=== PATIENT | female | born 1985 | race Caucasian/White ===

== ENCOUNTER 2020-07-24 12:22 | Inpatient (IN) | payer MEDICAID, SELFPAY ==
[2020-07-24 12:28] VITALS: BP 117/85; PULSE 90; RESP 20; TEMP 37.1; O2SAT 95
[2020-07-24 14:00] VITALS: RESP 16
[2020-07-24 21:28] VITALS: BP 138/83; PULSE 79; RESP 18; TEMP 36.6; O2SAT 97
[2020-07-25 06:00] VITALS: BP 105/65; PULSE 69; RESP 16; TEMP 36.6; O2SAT 92
--- NOTE | 2020-07-25 09:29 | PM.NHP ---
Providers/Chief Complaint Admitting Physician: Primo Palacios DO Chief Complaint: acute psychosis and SI HPI NPU History of Present Illness Romina Owusu is a 34 year old female presented to an [facility] emergency department stating that she was having worsening depressive symptoms and having a nervous breakdown and had told police at the time that they had picked her up that she wanted them to shoot her. Patient is a poor historian with reportedly a longstanding history of polysubstance abuse, particularly methamphetamine abuse, presenting to an [facility] emergency department frequently for methamphetamine induced psychosis and mood symptoms. She continues to report intermittent depressive symptoms related to her living and life circumstances but denies any current suicidal ideation or thoughts about self-harm. Patient is poorly motivated with regards to providing details and does not provide much information only stating that she had previously been hospitalized but does not remember when and vaguely recalls being on psychotropic medication. She does report interest in starting a low-dose antidepressant targeting her depressive symptoms. Patient states that she does not recall the last time she used any substances, states that she does not remember the last time she used methamphetamine and her UDS had been reportedly negative at [facility] emergency department for methamphetamine. She denies any current auditory or visual hallucinations and denies any delusions. Psychiatric review of systems is otherwise negative. Patient reports unstable living arrangement stating that she has been working intermittently at fast food places but mostly living for short periods with different acquaintances. Patient reports feeling exhausted but otherwise unremarkable review of systems, states that her sleep and appetite have been good. Patient states that she would like to get her life straight after leaving this hospitalization but states that she is not interested in substance counseling/treatment. Review of Systems General: Reports: 10 or more systems reviewed and unremarkable except in HPI and below [facility] NPU Other Psychiatric History: Other Psychiatric History: Per HPI, patient poorly motivated to provide information, does not recall last psychiatric hospitalization, states that she does not recall past psychiatric treatment or treatment with medication. Does not provide response with regards to past suicide attempts or self-harm behavior. Mental Status Exam MSE Comments: Obese, white female, lying in bed, disheveled, tired appearing, covers pull-up Psychomotor activity is somewhat decreased, no agitation Speech is somewhat slow, normal volume, spontaneous, fair articulation, not pressured I feel exhausted, congruent affect, not labile Soporific, oriented to person, place, time, situation Memory and concentration are fair although difficult to assess given poor motivation for interview Intellectual functioning appears to be average at best based on vocabulary, interview Thought process, linear but brief, no flight of ideas, no looseness of associations Thought content, no stated delusions, does not appear to be attending to any internal stimuli, no suicidal homicidal ideation Insight and judgment appear to be fair Vitals/I&O/Wt Last Vital Signs Temp 97.9 F 07/25/20 06:00 Pulse 69 07/25/20 06:00 Resp 16 07/25/20 06:00 BP 105/65 07/25/20 06:00 Pulse Ox 92 07/25/20 06:00 Weight last 48 hrs Weight 111.13 kg A&P Assessment and plan (1) Suicidal ideation: Status: Acute (2) Depressive disorder: Status: Acute (3) Polysubstance abuse: Status: Acute Additional A&P Information Presented from [facility] emergency department reporting worsening depressive symptoms and having a nervous breakdown, patient known to [facility] emergency department with frequent episodes of presenting with substance-induced mood and psychotic symptoms. Patient continues to report depressive symptoms in the context of negative UDS at the time of her presentation at [facility] emergency department. Unclear if patient's ongoing mood symptoms represent underlying mood disorder versus substance-induced mood disorder. Patient would benefit from initiating low-dose antidepressant. Patient has no interest in pursuing follow on substance counseling/treatment but communicates her understanding of need to follow-up with mental health medication management and counseling. Currently denying any suicidal ideation. INVOLUNTARY ADMIT to inpatient psychiatry START citalopram 10 mg daily targeting depressive symptoms Patient encouraged to participate in unit activities, unit milieu Coordinate with rn social services for post discharge mental health follow-up Involuntary Hold Information 96 Hour Hold: 96 Hour Involuntary Admission: Yes Attestations NPU Medical Necessity Statement*: Psychiatric hospitalization indicated for medication stabilization, coordination for safe discharge Anticipate hospital stay to exceed 2 midnights Time Spent in Patient Care: Greater than 35 minutes (>than 50% of time spent in counselling and/or direct pt care on unit). Coding Level of Care Code Acute [employer] for Nat Fwd Diagnoses Suicidal ideation R45.851 Depressive disorder F32.9 Polysubstance abuse F19.10
[2020-07-25] MEDS: citalopram 20 mg Tablet 10 MG PO (10:11)
[2020-07-25 14:00] VITALS: BP 102/70; PULSE 72; RESP 16; TEMP 36.3; O2SAT 98
[2020-07-25 20:25] VITALS: BP 128/75; PULSE 79; RESP 18; TEMP 36.8; O2SAT 92
[2020-07-26 06:00] VITALS: BP 128/79; PULSE 61; RESP 20; TEMP 36.4; O2SAT 93
[2020-07-26] MEDS: escitalopram 10 mg Tablet 20 MG PO (08:22)
[2020-07-26] MEDS: citalopram 20 mg Tablet 10 MG PO (08:22)
--- NOTE | 2020-07-26 09:16 | P.DS_ITS ---
Diagnoses at Discharge Discharge Diagnosis (1) Suicidal ideation: Status: Acute (2) Depressive disorder: Status: Acute (3) Polysubstance abuse: Status: Acute Reason for Visit Reason for Visit: acute psychosis and SI Hospital Course Hospital Course 34-year-old female with longstanding history of polysubstance abuse with unclear past psychiatric history but treated with Lexapro 20 mg daily and olanzapine 5 mg at bedtime presented to an [facility] emergency department with complaint of nervous breakdown. Patient's UDS was negative at the time of her presentation to [facility] emergency department; patient had quickly reconstituted and was denying any psychiatric symptoms at the time of initial evaluation and was requesting to go home. Patient was denying any suicidal ideation or thoughts about self-harm and was denying any psychotic symptoms. Patient was somewhat evasive with regards to questions about psychiatric history and follow-up but reported that she was taking medication inconsistently and appears to haphazardly follow-up with outpatient medication management. Patient does state that she has no interest in continuing on her current course but denied assistance with placement in outpatient or residential substance treatment post discharge. Patient was not suicidal at the time of discharge and did not appear to pose an imminent threat of harm to self or others. Low to moderate risk of harm to self given no current suicidal ideation and no current endorsement of any psychotic or other psychiatric symptoms although patient's risk will continue to be elevated if she continues to abuse substances and is noncompliant with recommendation to abstain from the use of substances as well as need for post discharge substance counseling/treatment which may lead to unexpected, impulsive behavior. Risk mitigation included psychiatric hospitalization for medication stabilization, observation, recommendation to abstain from the use of substances and alcohol as well as need for compliance with medication, medication management and post discharge substance c ounseling/treatment. Patient communicated her understanding of the need to abstain from the use of substances and alcohol as well as the need for compliance with her medication, medication management and post discharge substance counseling/treatment in order to further mitigate her risk of harm to self and others. Involuntary Hold Information 96 Hour Hold: 96 Hour Involuntary Admission: Yes Mental Status Exam MSE Comments: Lying in bed wearing hospital scrubs, calm, cooperative, unkempt, good eye contact Psychomotor activity is neither increased nor decreased, no agitation Speech is normal rate, normal volume, spontaneous, fair articulation, not pressured I feel exhausted, congruent affect, not labile Alert, oriented to person, place, time, situation Memory and concentration appear to be intact per interview Thought process, linear but brief, no flight of ideas, no looseness of associations Thought content, no stated delusions, does not appear to be attending to any internal stimuli, no suicidal homicidal ideation Insight and judgment appear to be fair Discharge Data Vitals: Last Vital Signs Temp 97.5 F L 07/26/20 06:00 Pulse 61 07/26/20 06:00 Resp 20 H 07/26/20 06:00 BP 128/79 07/26/20 06:00 Pulse Ox 93 07/26/20 06:00 Discharge Plan Discharge Patient Disposition: Home Condition: Stable Prescriptions: Continued escitalopram oxalate 20 mg tablet 20 mg PO DAILY RF: 0 Zyprexa 5 mg tablet 5 mg PO BEDTIME RF: 0 Naprosyn 500 mg tablet 500 mg PO BID MDD 2 PRN (Reason: Back Pain) RF: 0 Discharge Orders: Discharge Order (Routine); Ordered 07/26/20 Ordered By: Primo Palacios Discharge Diet: Usual diet Discharge Activity: Resume usual activity Patient Instructions: Naproxen (By mouth), Olanzapine (By mouth), Escitalopram (By mouth), Anxiety (DC), Opioid Safety Discharge Attestations NPU Time Spent in Discharge Care*: greater than 30 min Status at Discharge: Cognitive status at discharge: cognitively intact , Behavioral status at discharge: cooperative , Functional status at discharge: independent ambulation Overall status at discharge: patient is back to baseline Coding Level of Care Code Acute Chg FW DC note Diagnoses Suicidal ideation R45.851 Depressive disorder F32.9 Polysubstance abuse F19.10
[2020-07-26 09:17] VITALS: BP 128/79; PULSE 61; RESP 20; TEMP 36.4; O2SAT 93
--- NOTE | 2020-07-26 15:30 | PC.NURSE ---
Shift Summary Patient has been calm, cooperative, and more interactive today. Set up for discharge as soon as Medicaid ride is here to pick her up. Patient now in room.
== END 2020-07-26 17:00 | disposition home or self-care (01) | DRG 881 ==
PROVIDERS: Admitting Provider Psychiatry & Neurology Psychiatry; Visit Provider Psychiatry & Neurology Psychiatry
DX: F32.9 Major depressive disorder, single episode, unspecified (principal); R45.851 Suicidal ideations; F19.10 Other psychoactive substance abuse, uncomplicated

== ENCOUNTER 2020-11-15 18:07 | Inpatient (IN) | payer MEDICAID, SELFPAY ==
[2020-11-15 17:43] VITALS: BP 123/67; PULSE 68; RESP 18; TEMP 36.5; O2SAT 96
[2020-11-15 21:57] VITALS: BP 108/65; PULSE 64; RESP 14; TEMP 37.1; O2SAT 96
[2020-11-15] MEDS: hyDROXYzine 25 mg Capsule 50 MG PO (22:04)
[2020-11-15] MEDS: trazodone 50 mg Tablet PO (22:05)
[2020-11-16 06:00] VITALS: BP 92/53; PULSE 65; RESP 18; TEMP 36.8; O2SAT 98
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
--- NOTE | 2020-11-16 12:26 | NPU.GN ---
[facility] Group Topic:thought Processing General Mood of Group: patient did not come to group today.
[2020-11-16] MEDS: hyDROXYzine 25 mg Capsule 50 MG PO ×2 (13:09→21:21)
--- NOTE | 2020-11-16 13:10 | PC.NURSE ---
PRN VISTARIL 50 MG GIVEN PO PER PT C/O STATED ANXIETY
[2020-11-16 14:00] VITALS: BP 92/53; PULSE 65; RESP 18; TEMP 36.8; O2SAT 98
[2020-11-16] MEDS: haloperidol inj 5 mg/mL INJ 1 mL IM (14:43)
[2020-11-16] MEDS: LORazepam 2 mg/mL INJ 1 mL IM (14:44)
--- NOTE | 2020-11-16 14:45 | PC.NURSE ---
PRN ATIVAN/HALDOL ATIVAN 2 MG GIVEN IM WITH HALDOL 5 MG IM IN RIGHT DELTOID PER PT C/O AGITATION/AGGRESSION/ANXIETY. PT YELLING LOUDLY FROM HER ROOM, HITTING THE BED/LY WITH CLOSED FIST. STAFF ASKED PT IF SHE WAS IN PAIN PT YELLED YES IM IN FUCKING PAIN! OTHER STAFF MEMBERS PRESENT, PT CONT TO YELL PROFANITIES & BE DISRUPTIVE IN HER ROOM. OFFERED INJECTION, PT AGREEABLE TO TAKE INJECTION. WILL CONT TO MONITOR.
[2020-11-16] MEDS: OLANZapine 5 mg ODT PO (18:35)
[2020-11-16 20:50] VITALS: BP 96/58; PULSE 70; RESP 21; TEMP 37.1; O2SAT 95
[2020-11-16] MEDS: OLANZapine 5 mg TABLET PO (21:21)
[2020-11-16] MEDS: trazodone 50 mg Tablet PO (21:21)
[2020-11-17 06:00] VITALS: BP 120/69; PULSE 72; RESP 20; TEMP 36.9; O2SAT 98
[2020-11-17] MEDS: apixaban 5 mg Tablet PO (07:56)
[2020-11-17] MEDS: hyDROXYzine 25 mg Capsule 50 MG PO ×2 (13:19→20:09)
[2020-11-17 14:00] VITALS: BP 126/80; PULSE 86; RESP 20; TEMP 36.9; O2SAT 95
--- NOTE | 2020-11-17 16:28 | PM.NPN ---
Subjective NPU Subjective: Interval history: I met with the treatment team to discuss the patient's progress. They say she has continued to have severe anxiety which causes her to yell loudly at times. The patient says she has been having auditory hallucinations. She has been feeling intensely anxious at times. We talked about where she has been staying, place called [facility]. She denies having suicidal ideation. She does not feel her medications are helpful. She has asked for injections at times. We discussed that we will use injections only if necessary. I encouraged her to take the Zyprexa Zydis which is scheduled as needed for anxiety. She has been taking this medication and it has been helpful for her. She has some idea that the injections are more helpful. We agreed to increase the scheduled dose of Zyprexa at bedtime. Mental Status Exam MSE Comments: I met with the patient in her room, and she was dressed wrapped in a hospital blanket. She was again laying in bed and only somewhat responsive to my questions. Eye contact was poor. She had had a as needed Zyprexa a little while earlier. Mostly sleepy. Speech is slow at a quiet volume. Alert, oriented to person and situation, at least. Attention and concentration were somewhat impaired by her sedation. Memory is adequate for the interview Mood is anxious. Affect is improved. Thought process is concrete and still fairly disorganized. Thought content: She reports having auditory hallucinations. No visual hallucinations, no suicidal ideation or homicidal ideation. No delusions or paranoia are noted. Insight and judgment are impaired. Impulse control is impaired as well. Vitals/I&O/Wt Last Vital Signs Temp 97.6 F 11/17/20 20:39 Pulse 73 11/17/20 20:39 Resp 18 11/17/20 20:39 BP 97/55 11/17/20 20:39 Pulse Ox 96 11/17/20 20:39 Weight last 48 hrs Weight 106.594 kg A&P Assessment and plan (1) Bipolar disorder, curr episode mixed, severe, with psychotic features: Status: Acute (2) Anxiety disorder, unspecified: Status: Acute (3) Polysubstance abuse: Status: Acute Additional A&P Information This is a 35-year-old white female who has been in multiple emergency rooms who presents with severe mood lability and anxiety that has been preventing her from functioning. RECOMMENDATION AND PLAN: 1. She is taking Zyprexa for her psychosis and mood instability, related to bipolar disorder with psychotic features. We will increase the dose to 10 mg at bedtime. 2. Continue every 15 minute checks for safety. 3. Encourage individual, group and milieu therapies. 4. Encourage sober living treatment after discharge at the highest level of care to which he is willing to commit. Involuntary Hold Information 96 Hour Hold: 96 Hour Involuntary Admission: No Attestations NPU Medical Necessity Statement*: Psychiatric hospitalization is medically necessary to prevent access to lethal means, to reevaluate medication, and to coordinate a safe discharge. Likely length of stay is 2 to 4 days. Coding Level of Care Code Acute Superintendent [employer] for [facility] [employer] Diagnoses Bipolar disorder, curr episode mixed, severe, with psychotic features F31.64 Anxiety disorder, unspecified F41.9 Polysubstance abuse F19.10
[2020-11-17] MEDS: OLANZapine 5 mg ODT PO ×2 (17:25→22:54)
[2020-11-17] MEDS: trazodone 50 mg Tablet PO (20:08)
[2020-11-17] MEDS: OLANZapine 10 mg TABLET PO (20:09)
--- NOTE | 2020-11-17 20:10 | PC.NURSE ---
pt requesting sleep and anxiety meds, trazodone 50mg po for sleep and vistaril 50mg po given.
[2020-11-17 20:39] VITALS: BP 97/55; PULSE 73; RESP 18; TEMP 36.4; O2SAT 96
--- NOTE | 2020-11-17 22:15 | PC.NURSE ---
pt states still unable to sleep. requested pain med for left arm pain, Tylenol 650mg given.
[2020-11-17] MEDS: acetaminophen 325 mg Tablet 650 MG PO (22:17)
--- NOTE | 2020-11-17 23:00 | PC.NURSE ---
pt resting quietly with both eyes closed.
[2020-11-18 06:00] VITALS: BP 97/55; PULSE 73; RESP 18; TEMP 36.4; O2SAT 96
[2020-11-18] MEDS: apixaban 5 mg Tablet PO (09:10)
[2020-11-18 14:00] VITALS: BP 96/61; PULSE 76; RESP 20; TEMP 37; O2SAT 94
[2020-11-18] MEDS: OLANZapine 5 mg ODT PO (17:30)
--- NOTE | 2020-11-18 17:31 | PC.NURSE ---
PATIENT REQUESTING ZXPREXA, REPORTS SHE FEEL ANXIOUS. ZYPREXA 5MG ADMINISTERED. WILL MONITOR FOR DRUG EFFECTIVENESS
--- NOTE | 2020-11-18 18:11 | PC.NURSE ---
PATIENT RESTING QUIETLY WITH EYES CLOSED. PRN EFFECTIVE. WILL MONITOR FOR DRUG EFFECTIVENESS
--- NOTE | 2020-11-18 19:11 | PM.NPN ---
Subjective NPU Subjective: Interval history: I met with the treatment team to discuss the patient's progress. The plan is for her to go to [address] [place] to help find a place for her to stay. She will be seen in follow-up through the [facility]. She has been incontinent of urine at times. The patient says that she has been sad off and on, and she is tearful when I speak with her. She said she tossed and turned last night and was unable to sleep well. She has had some auditory and visual hallucinations today. Some feeling that she would like to be . We discussed medications. She has been on Zoloft in the past and it has been helpful for her. She consents to a trial. Mental Status Exam MSE Comments: I met with the patient on the bench by the nurses station, and she was dressed somewhat neatly in green hospital scrubs. She was interactive and responsive to my questions. Eye contact was improved. No psychomotor agitation or retardation. Speech is at a more regular rate and rhythm and normal volume. Alert, oriented to person and situation, at least. Attention and concentration were fairly intact. Memory is adequate for the interview Mood is sad and anxious. Affect is tearful at times. Thought process is concrete and more organized. Thought content: She reports having auditory and visual hallucinations. Some passive suicidal ideation but no homicidal ideation. No delusions or paranoia are noted. Insight and judgment are impaired. Impulse control is impaired as well. Vitals/I&O/Wt Last Vital Signs Temp 98.6 F 11/18/20 14:00 Pulse 76 11/18/20 14:00 Resp 20 H 11/18/20 14:00 BP 96/61 11/18/20 14:00 Pulse Ox 94 11/18/20 14:00 Weight last 48 hrs Weight 106.594 kg A&P Assessment and plan (1) Bipolar disorder, curr episode mixed, severe, with psychotic features: Status: Acute (2) Anxiety disorder, unspecified: Status: Acute (3) Polysubstance abuse: Status: Acute Additional A&P Information This is a 35-year-old white female who has been in multiple emergency rooms who presents with severe mood lability and anxiety that has been preventing her from functioning. RECOMMENDATION AND PLAN: 1. Add Zoloft 50 mg daily for depression. Continue Zyprexa 10 mg nightly for her psychosis and mood instability, related to bipolar disorder with psychotic features. 2. Continue every 15 minute checks for safety. 3. Encourage individual, group and milieu therapies. 4. Encourage sober living treatment after discharge at the highest level of care to which he is willing to commit. Involuntary Hold Information 96 Hour Hold: 96 Hour Involuntary Admission: No Attestations NPU Medical Necessity Statement*: Psychiatric hospitalization is medically necessary to prevent access to lethal means, to reevaluate medication, and to coordinate a safe discharge. Likely length of stay is 2 to 4 days. Coding Level of Care Code Acute Mobile Manager for [facility] Fwd Diagnoses Bipolar disorder, curr episode mixed, severe, with psychotic features F31.64 Anxiety disorder, unspecified F41.9 Polysubstance abuse F19.10
[2020-11-18] MEDS: sertraline 50 mg Tablet PO (21:59)
[2020-11-18] MEDS: OLANZapine 10 mg TABLET PO (21:59)
[2020-11-18 22:00] VITALS: BP 121/83; PULSE 88; RESP 20; TEMP 36.5; O2SAT 98
[2020-11-19 06:00] VITALS: BP 103/67; PULSE 67; RESP 15; TEMP 36.9; O2SAT 99
[2020-11-19] MEDS: sertraline 50 mg Tablet PO ×2 (09:34)
[2020-11-19] MEDS: apixaban 5 mg Tablet PO (09:34)
[2020-11-19 14:00] VITALS: BP 119/67; PULSE 73; RESP 16; TEMP 36.9; O2SAT 97
--- NOTE | 2020-11-19 17:40 | PM.NPN ---
Subjective NPU Subjective: Interval history: I met with the treatment team to review the patient's progress. We reviewed recent medication changes. The patient says that her depression is 7/10 in severity today, and her anxiety is 6/10?7/10. She says she slept okay, but she has been feeling somewhat hopeless and worthless today. She had suicidal ideation earlier in the morning. She denies homicidal ideation, as well as auditory and visual hallucinations. She has no side effects on the medications. She says she is feeling somewhat stable, and we had a good conversation about how to help her increase her emotional stability. She wants to get a job working at [employer] again. She can recognize that she is ambivalent about this, and states that part of her does not want to work as well. She has applied for disability and is waiting to hear back. Mental Status Exam MSE Comments: I met with the patient on the bench by the nurses station, and she was dressed somewhat neatly in green hospital scrubs. Grooming has improved a little each day. She was interactive and responsive to my questions. Eye contact was fairly good. No psychomotor agitation or retardation. Speech is at a more regular rate and rhythm and normal volume. Alert, oriented to person and situation, at least. Attention and concentration were fairly intact. Memory is adequate for the interview Mood is sad and anxious. Affect is mostly pleasant and she even smiles a couple of times. Thought process is concrete and more organized. Thought content: She reports no auditory and visual hallucinations. Some passive suicidal ideation but no homicidal ideation. No delusions or paranoia are noted. Insight and judgment are a little improved. Impulse control is a little improved as well. Vitals/I&O/Wt Last Vital Signs Temp 98.4 F 11/19/20 14:00 Pulse 73 11/19/20 14:00 Resp 16 11/19/20 14:00 BP 119/67 11/19/20 14:00 Pulse Ox 97 11/19/20 14:00 Weight last 48 hrs Weight 106.594 kg A&P Assessment and plan (1) Bipolar disorder, curr episode mixed, severe, with psychotic features: Status: Acute (2) Anxiety disorder, unspecified: Status: Acute (3) Polysubstance abuse: Status: Acute Additional A&P Information This is a 35-year-old white female who has been in multiple emergency rooms who presents with severe mood lability and anxiety that has been preventing her from functioning. RECOMMENDATION AND PLAN: 1. Added Zoloft 50 mg daily for depression. Continue Zyprexa 10 mg nightly for her psychosis and mood instability, related to bipolar disorder with psychotic features. No side effects from either medication. 2. Continue every 15 minute checks for safety. 3. Encourage individual, group and milieu therapies. 4. Encourage sober living treatment after discharge at the highest level of care to which he is willing to commit. Involuntary Hold Information 96 Hour Hold: 96 Hour Involuntary Admission: No Attestations NPU Medical Necessity Statement*: Psychiatric hospitalization is medically necessary to prevent access to lethal means, to reevaluate medication, and to coordinate a safe discharge. Likely length of stay is 2 to 4 days. Coding Level of Care Code Acute Artificial Flowers Dyer for Nat Pitts Diagnoses Bipolar disorder, curr episode mixed, severe, with psychotic features F31.64 Anxiety disorder, unspecified F41.9 Polysubstance abuse F19.10
[2020-11-19] MEDS: hyDROXYzine 25 mg Capsule 50 MG PO (20:48)
[2020-11-19] MEDS: trazodone 50 mg Tablet PO (20:48)
[2020-11-19] MEDS: ondansetron 4 MG Tablet PO (20:48)
[2020-11-19] MEDS: OLANZapine 10 mg TABLET PO (20:48)
[2020-11-19 22:00] VITALS: BP 127/82; PULSE 74; RESP 17; TEMP 36.7; O2SAT 97
[2020-11-20 06:00] VITALS: BP 112/71; PULSE 62; RESP 16; TEMP 36.9; O2SAT 97
[2020-11-20] MEDS: pantoprazole DR 40 mg Tablet PO (08:23)
[2020-11-20] MEDS: apixaban 5 mg Tablet PO (08:23)
[2020-11-20] MEDS: sertraline 50 mg Tablet PO ×2 (08:24)
--- NOTE | 2020-11-20 11:57 | PM.NPN ---
Subjective NPU Subjective: Interval history: I met with the patient on the bench by the nurses station. She says her depression is still high, 9/10-10/10 in severity. However, she denies having suicidal ideation so far today. She says she slept well, but it took a while to fall asleep. No nightmares. She has had no voices so far today. No visual hallucinations. No homicidal ideation. She says she is feeling okay physically. She denies having had side effects since starting the Zoloft. I spoke with her some about her history. Her last year in March. She has the date tattooed on her arm. She was in 2016. This was a happy time. She says that she has trouble remembering lots of things. She can forget to hold periods of her life. It is difficult for her to imagine a period of happy stability in the future. She says she has always felt like I was a failure. She also says that she gets angry at others and has bad jealousy. She is noted to be incontinent of urine in the day room. Mental Status Exam MSE Comments: I met with the patient on the bench by the nurses station, and she was dressed somewhat neatly in green hospital scrubs. Grooming was a little worse today. She was interactive and responsive to my questions. Eye contact was fairly good. No psychomotor agitation or retardation. Speech is at a more regular rate and rhythm and normal volume. Alert, oriented to person and situation, at least. Attention and concentration were fairly intact. Memory is adequate for the interview Mood is sad and anxious. Affect is more anxious and dysphoric today. Thought process is concrete. Thought content: She reports no auditory and visual hallucinations. Some passive suicidal ideation yesterday but not today. No homicidal ideation. No delusions or paranoia are noted. Insight and judgment are a little improved. Impulse control is a little improved as well. Vitals/I&O/Wt Last Vital Signs Temp 98.4 F 11/20/20 06:00 Pulse 62 11/20/20 06:00 Resp 16 11/20/20 06:00 BP 112/71 11/20/20 06:00 Pulse Ox 97 11/20/20 06:00 A&P Assessment and plan (1) Bipolar disorder, curr episode mixed, severe, with psychotic features: Status: Acute (2) Anxiety disorder, unspecified: Status: Acute (3) Polysubstance abuse: Status: Acute Additional A&P Information This is a 35-year-old white female who has been in multiple emergency rooms who presents with severe mood lability and anxiety that has been preventing her from functioning. RECOMMENDATION AND PLAN: 1. Added Zoloft 50 mg daily for depression. Continuing Zyprexa 10 mg nightly for her psychosis and mood instability, related to bipolar disorder with psychotic features. No side effects from either medication. 2. Continue every 15 minute checks for safety. 3. Encourage individual, group and milieu therapies. 4. Encourage sober living treatment after discharge at the highest level of care to which he is willing to commit. Involuntary Hold Information 96 Hour Hold: 96 Hour Involuntary Admission: No Attestations NPU Medical Necessity Statement*: Psychiatric hospitalization is medically necessary to prevent access to lethal means, to reevaluate medication, and to coordinate a safe discharge. Likely length of stay is 2 to 4 days. Coding Level of Care Code Acute Picture Frame Maker for Nat Pitts Diagnoses Bipolar disorder, curr episode mixed, severe, with psychotic features F31.64 Anxiety disorder, unspecified F41.9 Polysubstance abuse F19.10
[2020-11-20 14:00] VITALS: BP 121/76; PULSE 81; RESP 20; TEMP 36.5; O2SAT 95
[2020-11-20 19:57] VITALS: BP 110/60; PULSE 74; RESP 17; TEMP 36.9; O2SAT 97
[2020-11-20] MEDS: hyDROXYzine 25 mg Capsule 50 MG PO (21:28)
[2020-11-20] MEDS: trazodone 50 mg Tablet PO (21:28)
[2020-11-20] MEDS: OLANZapine 10 mg TABLET PO (21:28)
--- NOTE | 2020-11-20 21:30 | PC.NURSE ---
pt requested sleep and anxiety meds. Trazodone 50mg po and Vistaril 50mg po given.
--- NOTE | 2020-11-20 23:00 | PC.NURSE ---
pt resting quietly with both eyes closed.
[2020-11-21 06:00] VITALS: BP 110/60; PULSE 74; RESP 17; TEMP 36.9; O2SAT 97; BMI 35.7
[2020-11-21] MEDS: sertraline 50 mg Tablet PO (09:41)
[2020-11-21] MEDS: apixaban 5 mg Tablet PO (09:41)
[2020-11-21] MEDS: hyDROXYzine 25 mg Capsule 50 MG PO (09:41)
[2020-11-21] MEDS: pantoprazole DR 40 mg Tablet PO (09:41)
[2020-11-21 14:00] VITALS: BP 119/76; PULSE 90; RESP 16; TEMP 36.9; O2SAT 96
--- NOTE | 2020-11-21 17:16 | P.PN_ITS ---
Subjective NPU Subjective: Interval history: The patient says she is a little emotional, and feels like she wants to flip out. On the other hand, she also says she feels emotionally numb. She said she slept well last night without nightmares. She has continued to have some suicidal ideation, but no homicidal ideation. No auditory or visual hallucinations. She has no side effects from her medication. She has no improvement in her emotional stability yet. Mental Status Exam MSE Comments: I met with the patient on the bench by the nurses station, and she was dressed somewhat neatly in green hospital scrubs. Grooming was a little better today. She was interactive and responsive with fairly good eye contact. No psychomotor agitation or retardation. Speech is at a more regular rate and rhythm and normal volume. Alert, oriented to person and situation, at least. Attention and concentration were fairly intact. Memory is adequate for the interview Mood is sad and anxious. She has a sad expression on her face. Thought process is concrete. Thought content: She reports no auditory and visual hallucinations. Some passive suicidal ideation today. No homicidal ideation. No delusions or paranoia are noted. Insight and judgment are a little improved. Impulse control is a little improved as well. Vitals/I&O/Wt Last Vital Signs Temp 98.4 F 11/21/20 06:00 Pulse 74 11/21/20 06:00 Resp 17 11/21/20 06:00 BP 110/60 11/21/20 06:00 Pulse Ox 97 11/21/20 06:00 Weight last 48 hrs Weight 106.594 kg A&P Assessment and plan (1) Bipolar disorder, curr episode mixed, severe, with psychotic features: Status: Acute (2) Anxiety disorder, unspecified: Status: Acute (3) Polysubstance abuse: Status: Acute Additional A&P Information This is a 35-year-old white female who has been in multiple emergency rooms who presents with severe mood lability and anxiety that has been preventing her from functioning. RECOMMENDATION AND PLAN: 1. Added Zoloft 50 mg daily for depression. Continuing Zyprexa 10 mg nightly for her psychosis and mood instability, related to bipolar disorder with psycho tic features. No side effects from either medication. 2. Continue every 15 minute checks for safety. 3. Encourage individual, group and milieu therapies. 4. Encourage sober living treatment after discharge at the highest level of care to which he is willing to commit. Involuntary Hold Information 96 Hour Hold: 96 Hour Involuntary Admission: No Attestations NPU Medical Necessity Statement*: Psychiatric hospitalization is medically necessary to prevent access to lethal means, to reevaluate medication, and to coordinate a safe discharge. Likely length of stay is 1 to 3 days. Coding Level of Care Code Acute Associate Doctor for [facility] Fwd Diagnoses Bipolar disorder, curr episode mixed, severe, with psychotic features F31.64 Anxiety disorder, unspecified F41.9 Polysubstance abuse F19.10
[2020-11-21] MEDS: acetaminophen 325 mg Tablet 650 MG PO (18:36)
[2020-11-21] MEDS: OLANZapine 10 mg TABLET PO (21:13)
[2020-11-21] MEDS: trazodone 50 mg Tablet PO (21:13)
[2020-11-21 21:26] VITALS: BP 96/54; PULSE 70; RESP 15; TEMP 37.2; O2SAT 97
[2020-11-22 06:00] VITALS: BP 114/71; PULSE 84; RESP 16; TEMP 36.9; O2SAT 97
[2020-11-22] MEDS: sertraline 50 mg Tablet PO (07:57)
[2020-11-22] MEDS: apixaban 5 mg Tablet PO (07:57)
[2020-11-22] MEDS: pantoprazole DR 40 mg Tablet PO (07:57)
[2020-11-22] MEDS: OLANZapine 5 mg ODT PO (12:17)
--- NOTE | 2020-11-22 12:17 | PC.NURSE ---
Patient at nurse's station requesting something for anxiety. PRN Zyprexa administered.
[2020-11-22 13:50] VITALS: BP 129/90; PULSE 108; RESP 18; TEMP 37.2; O2SAT 96
--- NOTE | 2020-11-22 17:02 | PM.NPN ---
Subjective NPU Subjective: Interval history: I met with the patient in her room with the door open. She says, a couple of times I wanted to flip out. The pill calm to be down a little. She is talking about the as needed Zyprexa Zydis she took for anxiety. She says she still has some suicidal ideation but this may be approaching her baseline. She has some slightly bizarre comments,, such as, I am listening to the carrots and plants. She denies homicidal ideation. She denies auditory and visual hallucinations. She denies medication side effects. Mental Status Exam MSE Comments: I met with the patient in her room with the door open. Grooming was a little better. She was interactive and responsive with fairly good eye contact. No psychomotor agitation or retardation. Speech is at a more regular rate and rhythm and normal volume. Alert, oriented to person and situation, at least. Attention and concentration were fairly intact. Memory is adequate for the interview Mood is sad and anxious. Affect is a little brighter. Thought process is concrete. Thought content: She reports no auditory and visual hallucinations. Some passive suicidal ideation today. No homicidal ideation. No delusions or paranoia are noted. Insight and judgment are a little improved. Impulse control is a little improved as well. Vitals/I&O/Wt Last Vital Signs Temp 98.1 F 11/23/20 06:00 Pulse 60 11/23/20 06:00 Resp 22 H 11/23/20 06:00 BP 98/58 11/23/20 06:00 Pulse Ox 96 11/23/20 06:00 A&P Assessment and plan (1) Bipolar disorder, curr episode mixed, severe, with psychotic features: Status: Acute (2) Anxiety disorder, unspecified: Status: Acute (3) Polysubstance abuse: Status: Acute Additional A&P Information This is a 35-year-old white female who has been in multiple emergency rooms who presents with severe mood lability and anxiety that has been preventing her from functioning. RECOMMENDATION AND PLAN: 1. Added Zoloft 50 mg daily for depression. Continuing Zyprexa 10 mg nightly for her psychosis and mood instability, related to bipolar disorder with psychotic features. No side effects from either medication. 2. Continue every 15 minute checks for safety. 3. Encourage individual, group and milieu therapies. 4. Encourage sober living treatment after discharge at the highest level of care to which she is willing to commit. Involuntary Hold Information 96 Hour Hold: 96 Hour Involuntary Admission: No Attestations NPU Medical Necessity Statement*: Psychiatric hospitalization is medically necessary to prevent access to lethal means, to reevaluate medication, and to coordinate a safe discharge. Likely length of stay is 1 to 2 days. Coding Level of Care Code Acute Sanding Machine Buffer for Nat Griggsd Diagnoses Bipolar disorder, curr episode mixed, severe, with psychotic features F31.64 Anxiety disorder, unspecified F41.9 Polysubstance abuse F19.10
[2020-11-22] MEDS: ibuprofen 800 mg tablet PO (18:58)
[2020-11-22 20:17] VITALS: BP 120/77; PULSE 97; RESP 18; TEMP 37.3; O2SAT 97
[2020-11-22] MEDS: nicotine 2 mg Gum BUCCAL (20:36)
[2020-11-22] MEDS: OLANZapine 10 mg TABLET PO (22:01)
[2020-11-22] MEDS: hyDROXYzine 25 mg Capsule 50 MG PO (22:02)
[2020-11-22] MEDS: trazodone 50 mg Tablet PO (22:02)
[2020-11-23 06:00] VITALS: BP 98/58; PULSE 60; RESP 22; TEMP 36.7; O2SAT 96
[2020-11-23] MEDS: apixaban 5 mg Tablet PO (08:42)
[2020-11-23] MEDS: hyDROXYzine 25 mg Capsule 50 MG PO ×3 (08:42→19:48)
[2020-11-23] MEDS: pantoprazole DR 40 mg Tablet PO (08:42)
[2020-11-23] MEDS: nicotine 2 mg Gum BUCCAL (08:42)
[2020-11-23] MEDS: sertraline 50 mg Tablet PO (08:43)
[2020-11-23] MEDS: ibuprofen 800 mg tablet PO ×2 (08:44→17:08)
[2020-11-23 14:00] VITALS: BP 104/57; PULSE 76; RESP 16; TEMP 36.6; O2SAT 96
--- NOTE | 2020-11-23 17:56 | P.PN_ITS ---
Subjective NPU Subjective: Interval history: I met with the patient in her room with the door open. She says, she has not wanted to flip out so much now. She still has some suicidal ideation but this is likely her baseline. Speech is more reality-based She denies homicidal ideation. She denies auditory and visual hallucinations. She denies medication side effects. Mental Status Exam MSE Comments: I met with the patient in her room with the door open. Grooming was a little better. She was interactive and responsive with fairly good eye contact. No psychomotor agitation or retardation. Speech is at a more regular rate and rhythm and normal volume. Alert, oriented to person and situation, at least. Attention and concentration were fairly intact. Memory is adequate for the interview Mood is sad and anxious. Affect is a little brighter. Thought process is concrete. Thought content: She reports no auditory and visual hallucinations. Some passive suicidal ideation today. No homicidal ideation. No delusions or paranoia are noted. Insight and judgment are a little improved. Impulse control is a little improved as well. Vitals/I&O/Wt Last Vital Signs Temp 98.6 F 11/24/20 11:02 Pulse 79 11/24/20 11:02 Resp 18 11/24/20 11:02 BP 120/70 11/24/20 11:02 Pulse Ox 95 11/24/20 11:02 A&P Assessment and plan (1) Anxiety disorder, unspecified: Status: Acute (2) Polysubstance abuse: Status: Acute Additional A&P Information This is a 35-year-old white female who has been in multiple emergency rooms who presents with severe mood lability and anxiety that has been preventing her from functioning. RECOMMENDATION AND PLAN: 1. Added Zoloft 50 mg daily for depression. Continuing Zyprexa 10 mg nightly f or her psychosis and mood instability, related to bipolar disorder with psychotic features. No side effects from either medication. 2. Continue every 15 minute checks for safety. 3. Encourage individual, group and milieu therapies. 4. Encourage sober living treatment after discharge at the highest level of care to which she is willing to commit. Involuntary Hold Information 96 Hour Hold: 96 Hour Involuntary Admission: No Attestations NPU Medical Necessity Statement*: Psychiatric hospitalization is medically necessary to prevent access to lethal means, to reevaluate medication, and to coordinate a safe discharge. Likely length of stay is 1 to 2 days. Coding Level of Care Code Acute Equipment Operator for g Fwd Diagnoses Anxiety disorder, unspecified F41.9 Polysubstance abuse F19.10
[2020-11-23] MEDS: guaiFENesin 600 mg Tablet PO (19:48)
[2020-11-23] MEDS: trazodone 50 mg Tablet PO (19:49)
[2020-11-23] MEDS: OLANZapine 10 mg TABLET PO (19:49)
--- NOTE | 2020-11-23 19:50 | PC.NURSE ---
pt request cold med, sleep and anxiety meds. guaifenesin 600mg, vistaril 50mg and trazodone 50mg all po, given.
[2020-11-23 22:00] VITALS: BP 118/73; PULSE 114; RESP 18; TEMP 36.2; O2SAT 96
--- NOTE | 2020-11-23 23:57 | PC.NURSE ---
PM ASSESSMENT PT INTERACTED WITH NIGHT STAFF MORE THAN SHE HAS IN THE LAST COUPLE OF DAYS, SHE ASKS AND ANSWERS QUESTIONS APPROPRIATELY, DENIES SI/HI, DENIES AVH, DENIES PAIN AT THIS TIME, NURSING STAFF ATTEMPTED TO DETANGLE THE LARGE MATTED WAD OF HAIR ON THIS PATIENT'S HEAD. STAFF OFFERED TO CUT PT HAIR, SHE STATED, i WILL THINK ABOUT IT. pT IS SELF CONSCIOUS ABOUT IT. PT STATED SHE IS MILDLY ANXIOUS, MED NURSE ADMINISTERED 50MG po vISTERIL, PT RESPONDED WELL, SYMPTOMS DIMINISHED. PT DID REQUEST MEDICATION FOR SINUS CONGESTION, HOT RAG APPLIED TO SINUS AND MUCINEX ADMINISTERED. pT REPORTED RELIEF OF SYMPTOMS. pT REQUESTED MEDICATION TO HELP HER SLEEP THIS EVENING, MED NURSE ADMINISTERED 50MG po tRAZODONE, REASSESSED IN 45MIN, PT WAS SOUND ASLEEP.
[2020-11-24] MEDS: guaiFENesin 600 mg Tablet PO (05:54)
[2020-11-24 06:00] VITALS: BP 120/70; PULSE 79; RESP 18; TEMP 37; O2SAT 95
[2020-11-24] MEDS: pantoprazole DR 40 mg Tablet PO (08:23)
[2020-11-24] MEDS: apixaban 5 mg Tablet PO (08:23)
[2020-11-24] MEDS: sertraline 50 mg Tablet PO (08:23)
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
[2020-11-24 11:02] VITALS: BP 120/70; PULSE 79; RESP 18; TEMP 37; O2SAT 95
== END 2020-11-24 14:20 | disposition home or self-care (01) | DRG 885 ==
PROVIDERS: Admitting Provider Psychiatry & Neurology Child & Adolescent Psychiatry; Visit Provider Psychiatry & Neurology Child & Adolescent Psychiatry
DX: F31.64 Bipolar disorder, current episode mixed, severe, with psychotic features (principal); R45.851 Suicidal ideations; F41.9 Anxiety disorder, unspecified; F19.180 Other psychoactive substance abuse with psychoactive substance-induced anxiety disorder; F17.210 Nicotine dependence, cigarettes, uncomplicated; R32 Unspecified urinary incontinence; Z59.0 Homelessness; Z91.5 Personal history of self-harm; Z79.01 Long term (current) use of anticoagulants; Z86.718 Personal history of other venous thrombosis and embolism
CPT/HCPCS: 96372; J1630; J2060; Q0162